=== PATIENT | female | born 1960 | race Caucasian/White ===

== ENCOUNTER 2016-11-03 12:04 | Emergency (ER) | payer SELFPAY ==
[~2016-11-03] VITALS: Ht 162.6 cm; Wt 85.8 kg
[2016-11-03 12:07] VITALS: BP 165/95
== END 2016-11-03 12:50 | disposition home or self-care (01) ==
LOC: ED 12:40
DX: Z76.0 Encounter for issue of repeat prescription (principal)
CPT/HCPCS: 99283